=== PATIENT | female | born 1980 | race Two or more races ===

== ENCOUNTER 2017-06-30 23:47 | Emergency (ER) | payer BC ==
[~2017-06-30] VITALS: Ht 162.6 cm; Wt 57.0 kg
[2017-07-01] MEDS ORDERED: SODIUM CHLORIDE 0.9% 1,000ML IVBOLUS ONE (00:30)
[2017-07-01 00:47] LABS: BASOPHILS # (AUTO) 0.04 x10^3/uL (0-0.1); BASOPHILS % (AUTO) 0 % (0-1); EOSINOPHILS % (AUTO) 1 % (1-7); LYMPHOCYTES # (AUTO) 1.37 x10^3/uL (1-3.4); LYMPHOCYTES % (AUTO) 9 % (22-44); MD NO; MEAN CORPUSCULAR HEMOGLOBIN 28.5 pg (27.0-34.8); MEAN CORPUSCULAR HGB CONC 33.5 g/dL (32.4-35.8); MEAN CORPUSCULAR VOLUME 85.1 fL (80-100); MEAN PLATELET VOLUME 8.1 fL (7.4-10.4); MONOCYTES # (AUTO) 0.45 x10^3/uL (0.2-0.8); MONOCYTES % (AUTO) 3 % (2-9); NEUTROPHILS # (AUTO) 13.22 x10^3/uL (1.8-6.8); NEUTROPHILS % (AUTO) 87 % (42-75); PLATELET COUNT 288 x10^3/uL (130-400); RED BLOOD COUNT 4.02 x10^6/uL (3.82-5.3); RED CELL DISTRIBUTION WIDTH 13.8 % (9.6-15.2)
[2017-07-01 01:00] LABS: ALBUMIN 3.8 g/dL (3.4-5.0); ANION GAP 7 mmol/L (5-15); CALCIUM 8.8 mg/dL (8.5-10.1); CHLORIDE 104 mmol/L (98-107); CREATININE 1.15 mg/dL (0.55-1.02)
[2017-07-01] MEDS ORDERED: ACETAMINOPHEN 325 MG TABLET ONE (01:05)
[2017-07-01 01:18] LABS: CULTURE INDICATED? YES; MICROSCOPIC INDICATED
[2017-07-01] MEDS ORDERED: ACETAMINOPHEN 325 MG TABLET PO ONE (01:30)
[2017-07-01] MEDS ORDERED: CEFTRIAXONE PMX 1GM/50ML 50 ML IV ONE (02:00)
[2017-07-01] MEDS ORDERED: CEFTRIAXONE PMX 1GM/50ML 50 ML ONE (02:00)
[2017-07-01] MEDS ORDERED: KETOROLAC 30 MG/1 ML ONE (03:22)
[2017-07-01] MEDS ORDERED: KETOROLAC 30 MG/1 ML IVPush ONE ×2 (03:30)
[2017-07-01 03:34] VITALS: BP 98/63
== END 2017-07-01 03:37 | disposition home or self-care (01) ==
LOC: EDBD 23:47 → ED 07-01 03:31
DX: N61.0 Mastitis without abscess (principal); L73.9 Follicular disorder, unspecified
CPT/HCPCS: 36415; 71045; 80048; 81001; 82040; 84703; 85025; 87086; 93005; 96361; 96365; 96366; 96375; 99285; J0696; J1885; J7030

== ENCOUNTER 2020-05-05 12:16 | Emergency (ER) | payer BC, OTHER ==
[~2020-05-05] VITALS: Ht 162.6 cm; Wt 54.0 kg
--- NOTE | 2020-05-05 12:46 | NUR ---
STREP THROAT THAT SEMI RESOLVED ON Z-PACK, NOW WITH RIGHT SIDED THROAT PAIN. SEEN AT . DX WITH PERITONSILLAR ABSCESS AFEBRILE VSS TALKING WNL SLIGHT DIFFICULTY SWALLOWING
[2020-05-05 13:23] LABS: BASOPHILS % (AUTO) 1 % (0-1); EOSINOPHILS % (AUTO) 3 % (1-7); LYMPHOCYTES % (AUTO) 13 % (22-44); MEAN CORPUSCULAR HEMOGLOBIN 28.6 pg (27.0-34.8); MEAN PLATELET VOLUME 7.8 fL (7.4-10.4); MONOCYTES % (AUTO) 7 % (2-9); NEUTROPHILS % (AUTO) 77 % (42-75); PLATELET COUNT 370 x10^3/uL (130-400); RED BLOOD COUNT 3.85 x10^6/uL (3.82-5.3); RED CELL DISTRIBUTION WIDTH 13.2 % (9.6-15.2)
[2020-05-05 13:32] LABS: ALBUMIN 3.6 g/dL (3.4-5.0); ANION GAP 2 mmol/L (5-15); CALCIUM 8.7 mg/dL (8.5-10.1); CHLORIDE 110 mmol/L (98-107); CREATININE 0.59 mg/dL (0.55-1.02)
[2020-05-05 13:43] LABS: MD SCAN
[2020-05-05] MEDS ORDERED: DEXAMETHASONE 4 MG/ML, 1ML ONE (13:45)
[2020-05-05] MEDS ORDERED: AMPICILLIN/SULBACTAM 3 GM in SODIUM CHLORIDE 0.9% 100 ML IV ONE (14:00)
[2020-05-05] MEDS ORDERED: DEXAMETHASONE 4 MG/ML, 1ML IVPush ONE (14:00)
--- NOTE | 2020-05-05 14:01 | NUR ---
MEDICATED PER EMAR- STEROID/ABX (CLARIFIED NO NEED FOR BLOOD CULTURES WITH MD PRIOR TO ADMIN). NO NEED FOR CULTURES NO SIGN OF SIRS TO CT SCAN ATY 1401
[2020-05-05] MEDS ORDERED: OMNIPAQUE 350 MG/ML, 75ML BOTTLE ONE (14:12)
--- NOTE | 2020-05-05 14:39 | NUR ---
with reassessment-pain with swallowing improved from 7/10 to 3/10
--- NOTE | 2020-05-05 14:48 | NUR ---
placed up for recheck
[2020-05-05] MEDS ORDERED: LIDOCAINE-MPF 1%, 5ML ONE (15:13)
[2020-05-05] MEDS ORDERED: BENZOCAINE 20% SPRAY 0.5ML ONE (15:13)
[2020-05-05] MEDS ORDERED: BENZOCAINE AEROSOL SPRAY 20%, 60ML ONE (15:22)
[2020-05-05] MEDS ORDERED: BENZOCAINE AEROSOL SPRAY 20%, 60ML TP ONE (15:30)
[2020-05-05] MEDS ORDERED: LIDOCAINE 1%, 10ML INFIL ONE (15:30)
--- NOTE | 2020-05-05 15:50 | NUR ---
PROVIDER AT BEDSIDE TO I&D RIGHT PERTONISILAR ABCESS WITH LOCAL AFTER LOCAL AND TOPICAL ANESTHESIA
[2020-05-05] MEDS ORDERED: ONDANSETRON ODT 4 MG ONE (15:53)
[2020-05-05] MEDS ORDERED: HYDROcodone/APAP 5/325 TABLET ONE (15:53)
[2020-05-05] MEDS ORDERED: MORPHINE SULFATE 4 MG/ML, 1ML ONE (16:01)
[2020-05-05] MEDS ORDERED: ONDANSETRON 2MG/ML, 2ML ONE (16:01)
[2020-05-05] MEDS ORDERED: MORPHINE SULFATE 4 MG/ML, 1ML IVPush ONE (16:30)
[2020-05-05] MEDS ORDERED: ONDANSETRON 2MG/ML, 2ML IVPush ONE (16:30)
[2020-05-05 16:48] VITALS: BP 157/79
[2020-05-05] MEDS ORDERED: HYDROcodone/APAP 5/325 TABLET PO ONE (17:00)
[2020-05-05] MEDS ORDERED: ONDANSETRON ODT 4 MG PO ONE (17:00)
== END 2020-05-05 16:50 | disposition home or self-care (01) ==
LOC: ED 12:43
DX: J36 Peritonsillar abscess (principal)
CPT/HCPCS: 36415; 42700; 70491; 80048; 82040; 84703; 85025; 96365; 96375; 99285; J0295; J1100; J2270; J2405; J3490; Q9967